=== PATIENT | male | born 1945 | race Hispanic/Latino ===

== ENCOUNTER 2018-07-25 11:07 | Emergency (ER) | payer MEDICARE ==
[2018-07-25 11:08] VITALS: BMI 29.5
[2018-07-25] MEDS ORDERED: Sodium Chloride 0.9% 1,000 ML IV STA (11:23)
[2018-07-25] MEDS ORDERED: Morphine 4 mg/ml ISec IVP STA ×2 (11:23→13:13)
--- NOTE | 2018-07-25 11:35 | ED PDOC ---
Arrival/HPI - General Chief Complaint: Abdominal Pain Time Seen by Provider: 07/25/18 11:16 Historian: Patient - History of Present Illness Narrative History of Present Illness (Text): 07/25/18 11:26 72 year old male, whose past medical history includes colon cancer s/p colostomy, presents to the emergency department complaining of abdominal pain that began last night. Patient reports the pain is constant and describes it as "some punched him in the stomach". Patient reports he took methadone with no relief. Patient denies any fever, chills, chest pain, shortness of breath, hematochezia, nausea, vomiting, diarrhea, urinary symptoms, back pain, neck pain, headache, dizziness, or any other complaints. PMD: Dr. Krishnan GI: None Time/Duration: Other (last night) Symptom Onset: Gradual Symptom Course: Unchanged Activities at Onset: Light Context: Home Past Medical History - Provider Review Nursing Documentation Reviewed: Yes - Infectious Disease Hx of Infectious Diseases: None - Tetanus Immunization Tetanus Immunization: Unknown - Past Medical History Past Medical History: No Previous - Cardiac Hx Cardiac Disorders: Yes Hx Hypertension: Yes - Pulmonary Hx Respiratory Disorders: No - Neurological Hx Neurological Disorder: No - HEENT Hx HEENT Disorder: No - Renal Hx Renal Disorder: No - Endocrine/Metabolic Hx Endocrine Disorders: No - Hematological/Oncological Hx Blood Disorders: Yes Hx Blood Transfusions: No Hx Blood Transfusion Reaction: No Hx Cancer: Yes (colon ca with colostomy) - Integumentary Hx Dermatological Disorder: Yes (COLOSTOMY NTO LEFT LOWER ABDOMINAL AREA) - Musculoskeletal/Rheumatological Hx Musculoskeletal Disorders: Yes (RIGHT HAND SX) Hx Arthritis: Yes Hx Back Pain: Yes Hx Falls: No Hx Spinal Stenosis: Yes Hx Unsteady Gait: Yes (CANE,WALKER) Other/Comment: pt takes methadone and percocet for chronic right hand pain - Gastrointestinal Hx Gastrointestinal Disorders: Yes Hx Colostomy: Yes (LEFT LOWER ABDOMEN) Hx Diverticulitis: Yes Hx Hemorrhoids: Yes Other/Comment: HEMOIRRHOIDS ,GI BLEED, Colon CA - Genitourinary/Gynecological Hx Genitourinary Disorders: No Hx Reproductive Disorders: No - Psychiatric Hx Psychophysiologic Disorder: Yes Hx Anxiety: Yes Hx Depression: Yes Hx Emotional Abuse: No Hx Physical Abuse: No Hx Substance Use: No - Surgical History Hx Orthopedic Surgery: Yes (R HAND) Other/Comment: colostomy - Anesthesia Hx Anesthesia: Yes Hx Anesthesia Reactions: No (admission says yes, per patient no reaction) Hx Malignant Hyperthermia: No - Suicidal Assessment Feels Threatened In Home Enviroment: No Family/Social History - Physician Review Nursing Documentation Reviewed: Yes Family/Social History: No Known Family HX Smoking Status: Never Smoked Hx Alcohol Use: Yes Frequency of alcohol use: Socially Hx Substance Use: No Hx Substance Use Treatment: No Allergies/Home Meds Allergies/Adverse Reactions: Allergies No Known Allergies Allergy (Verified 07/25/18 11:15) Home Medications: Home Meds Medication Instructions Recorded Confirmed Methadone 30 mg PO BID 11/27/14 07/25/18 Review of Systems - Physician Review All systems were reviewed & negative as marked: Yes - Review of Systems Constitutional: absent: Fevers, Other (chills) Respiratory: absent: SOB Cardiovascular: absent: Chest Pain Gastrointestinal: Abdominal Pain. absent: Diarrhea, Nausea, Vomiting Genitourinary Male: absent: Dysuria, Frequency, Hematuria Musculoskeletal: absent: Back Pain, Neck Pain Neurological: absent: Headache, Dizziness Physical Exam Vital Signs Reviewed: Yes Appearance: Positive for: Well-Appearing, Non-Toxic, Comfortable Pain Distress: None Mental Status: Positive for: Alert and Oriented X 3 - Systems Exam Head: Present: Atraumatic, Normocephalic Pupils: Present: PERRL Extroacular Muscles: Present: EOMI Conjunctiva: Present: Normal Mouth: Present: Moist Mucous Membranes Neck: Present: Normal Range of Motion Respiratory/Chest: Present: Clear to Auscultation, Good Air Exchange. No: Respiratory Distress, Accessory Muscle Use Cardiovascular: Present: Regular Rate and Rhythm, Normal S1, S2. No: Murmurs Abdomen: Present: Tenderness, Guarding. No: Distention, Peritoneal Signs, Rebound Back: Present: Normal Inspection Upper Extremity: Present: Normal Inspection. No: Cyanosis, Edema Lower Extremity: Present: Normal Inspection. No: Edema Neurological: Present: GCS=15, CN II-XII Intact, Speech Normal Skin: Present: Warm, Dry, Normal Color. No: Rashes Psychiatric: Present: Alert, Oriented x 3, Normal Insight, Normal Concentration Medical Decision Making ED Course and Treatment: 07/25/18 11:26 Impression: 72 year old male presents complaining of constant abdominal pain that began last night. PE shows abdominal tenderness with guarding. Differential Diagnosis included but are not limited to: Abdominal mass VS Gastroenteritis Plan: -- CT Abd pelvis PO & IV Contrast -- Labs -- Morphine, Pepcid, IV Fluids, Zofran Inj -- EKG -- Reassess and disposition Prior Visits: Notes and results from previous visits were reviewed. Progress Notes: EKG shows NSR at 98 BPM with incomplete RBBB, T wave inversion lead III. Interpreted by me. 07/25/18 18:28 Patient improved with Morphine 4mg IV x2 for pain control. CT results pending. 07/25/2018 18:45 Abd/Pelvis CT IMPRESSION: Postsurgical changes with colostomy in the left lower quadrant of the abdomen. Some herniation of bowel at the colostomy site. Postoperative changes lower pelvis. A grade 1 anterolisthesis at the lumbosacral junction. Close clinical correlation is advised. Dictator: Oskar Walton MD 07/25/18 18:54 Patient feels better. Abdomen is soft and NT. ND. He is moving bowels via his colostomy bag. He will be discharged home with PMD f/u with Dr. Krishnan. - Lab Interpretations I have reviewed the lab results: Yes - RAD Interpretation Radiology Orders: 07/25/18 11:23 ABD PELVIS PO & IV CONTRAST [CT] Stat Groutman: Radiologist - EKG Interpretation Interpreted by ED Physician: Yes Type: 12 lead EKG - Medication Orders Current Medication Orders: Famotidine (Pepcid) 20 mg IVP STAT STA Stop: 07/25/18 11:24 Sodium Chloride (Sodium Chloride 0.9%) 1,000 mls @ 1,000 mls/hr IV .Q1H STA Stop: 07/25/18 12:22 Morphine Sulfate (Morphine) 4 mg IVP STAT STA Stop: 07/25/18 11:24 Ondansetron HCl (Zofran Inj) 4 mg IVP STAT STA Stop: 07/25/18 11:24 - Scribe Statement The provider has reviewed the documentation as recorded by the Slade Finn Provider Scribe Attestation: All medical record entries made by the Scribe were at my direction and personally dictated by me. I have reviewed the chart and agree that the record accurately reflects my personal performance of the history, physical exam, medical decision making, and the department course for this patient. I have also personally directed, reviewed, and agree with the discharge instructions and disposition. Disposition/Present on Arrival - Present on Arrival Any Indicators Present on Arrival: No History of DVT/PE: No History of Uncontrolled Diabetes: No Urinary Catheter: No History of Decub. Ulcer: No History Surgical Site Infection Following: None - Disposition Have Diagnosis and Disposition been Completed?: Yes Diagnosis: Abdominal pain Disposition: HOME/ ROUTINE Disposition Time: 18:55 Patient Problems: Current Active Problems Problem Status Onset Abdominal pain Acute Condition: IMPROVED Additional Instructions: RENU RIZZO, thank you for letting us take care of you today. Your provider was Jaspal Christine DO and you were treated for Abdomen Pain. The emergency medical care you received today was directed at your acute symptoms. If you were prescribed any medication, please fill it and take as directed. It may take several days for your symptoms to resolve. Return to the Emergency Department if your symptoms worsen, do not improve, or if you have any other problems. Please contact your doctor or call one of the physicians/clinics you have been referred to that are listed on the Patient Visit Information form that is included in your discharge packet. Bring any paperwork you were given at discharge with you along with any medications you are taking to your follow up visit. Our treatment cannot replace ongoing medical care by a primary care provider outside of the emergency department. Thank you for allowing the [facility] team to be part of your care today. If you had an X-Ray or CT scan: A Radiologist will review the ED reading if any change in treatment is needed we will contact you. If you had a blood, urine, or wound culture: It will take several days for the results, if any change in treatment is needed we will contact you. If you had an STI test: It will take 48 hours for the results. Please call after 1 week if you have not heard back. Prescriptions: Ibuprofen [Motrin] 600 mg PO Q6 PRN #30 tab PRN Reason: Pain, Moderate (4-7) Referrals: Albert Krishnan DO [Family Provider] - Follow up with primary Forms: [employer] ([place]ian), WORK NOTE
[2018-07-25 12:11] LABS: BASO # 0.01 K/mm3 (0.0-2.0); BASO % 0.1 % (0.0-3.0); EOS # 0.2 (0.0-0.7); EOS % 1.9 % (1.5-5.0); HEMOGLOBIN 15.3 g/dL (14.0-18.0); LYMPH # 0.5 (1.2-3.4); LYMPH % 5.7 % (22.0-35.0); MEAN CELL VOLUME 90.7 fl (80.0-105.0); MEAN CORPUSCULAR HGB CONC 34.2 g/dl (31.0-37.0); MEAN PLATELET VOLUME 9.9 fl (7.0-11.0); MONO # 0.4 (0.1-0.6); MONO % 4.9 % (1.0-6.0); RBC 4.94 10^6/uL (3.5-6.1); RED CELL DISTRIBUTION WIDTH 12.6 % (11.5-14.5); WHITE BLOOD COUNT 8.4 10^3/uL (4.5-11.0)
[2018-07-25] MEDS ORDERED: Iohexol 350 MG/100 ML VIAL ONE (12:15)
[2018-07-25] MEDS ORDERED: Iohexol 240 (50 ml) ONE (12:15)
[2018-07-25 12:22] LABS: ALB/GLOB RATIO 1.3 (1.1-1.8)
[2018-07-25 13:04] LABS: INR 1.03; PARTIAL THROMBOPLASTIN TIME 29.1 Seconds (26.9-38.3); PROTHROMBIN TIME 11.6 SECONDS (9.4-12.5)
[2018-07-25 13:18] LABS: ALBUMIN 4.3 g/dL (3.0-4.8); ALT/SGPT 17 U/L (7-56); AST/SGOT 26 U/L (17-59); BLOOD UREA NITROGEN 19 mg/dL (7-21); CALCIUM 9.1 mg/dL (8.4-10.5); GFR NON-AFRICAN AMERICAN > 60; LIPASE 96 U/L (23-300)
--- NOTE | 2018-07-25 16:17 | CARD ---
APPROVED REPORT Date of service: 07/25/2018 EKG Measurement Heart [id number] ND 154P2 [id number] <Conclusion> Normal sinus rhythm Pulmonary disease pattern Incomplete right bundle branch block Left anterior fascicular block Abnormal ECG
[2018-07-25 17:13] VITALS: RESP 19; TEMP 98; O2SAT 99
[2018-07-25 19:11] VITALS: BP 125/53; PULSE 75
--- NOTE | 2018-07-26 08:22 | CT ---
Date of service: 07/25/2018 PROCEDURE: CT Abdomen and Pelvis with contrast HISTORY: Abdominal pain. Relevant surgical history: Colon resection for rectal carcinoma COMPARISON: 05/13/2014. CT abdomen and pelvis TECHNIQUE: Intravenous contrast dose: 100 cc Omnipaque 350 Radiation dose: Total exam DLP = 1174.21 mGy-cm. This CT exam was performed using one or more of the following dose reduction techniques: Automated exposure control, adjustment of the mA and/or kV according to patient size, and/or use of iterative reconstruction technique. FINDINGS: LOWER THORAX: Unremarkable. LIVER: Hepatic steatosis. No focal masses. No intrahepatic bile duct dilatation or perihepatic ascites. GALLBLADDER AND BILE DUCTS: Unremarkable. PANCREAS: Unremarkable. No gross lesion or ductal dilatation. SPLEEN: Mild splenomegaly without focal abnormality. ADRENALS: Unremarkable. No mass. KIDNEYS AND URETERS: Unremarkable. No hydronephrosis. No solid mass. VASCULATURE: Unremarkable. No aortic aneurysm. Atherosclerotic calcification and mural plaque present. Findings are seen throughout the aorta extending into the iliac arteries. BOWEL: Stable appearance of colostomy. Interval improvement in presacral postoperative change. APPENDIX: Normal appendix. PERITONEUM: Unremarkable. No free fluid. No free air. LYMPH NODES: Unremarkable. No enlarged lymph nodes. BLADDER: Collapsed urinary bladder. No focal abnormalities detected. REPRODUCTIVE: Unremarkable. BONES: No acute fracture. Multilevel degenerative changes. Grade 1 anterolisthesis L5-S1. OTHER FINDINGS: None. IMPRESSION: No acute or significant findings related to/ accounting for the clinical presentation. Additional benign and/or incidental findings described above. Includes postoperative findings related to rectal resection and colostomy. No significant interval change compared to the prior examination(s). Concordant results (preliminary interpretation) provided by [facility]. Procedure Completed: 16:45. Preliminary Report: Dictated and Authenticated: 18:45. Final Interpretation: 08:18.
== END 2018-07-25 19:18 | disposition home or self-care (01) ==
LOC: ED 11:07
DX: R10.9 Unspecified abdominal pain (principal); I10 Essential (primary) hypertension; Z85.038 Personal history of other malignant neoplasm of large intestine; Z93.3 Colostomy status
CPT/HCPCS: 74177; 80053; 83690; 83735; 85025; 85610; 85730; 93005; 96361; 96374; 96375; 96376; 99285; J2270; J2405; J7030; Q9966; Q9967